=== PATIENT | female | born 1990 | race Caucasian/White ===

== ENCOUNTER → 2019-02-08 | Outpatient (CLI) | payer BC | LOC: FIMAGING 14:19 | PROVIDERS: ATTEND Midwife | DX: O20.9 Hemorrhage in early pregnancy, unspecified (principal); Z3A.12 12 weeks gestation of pregnancy ==

== ENCOUNTER → 2019-03-30 | Outpatient (CLI) | payer BC | LOC: FIMAGING 12:29 | PROVIDERS: ATTEND Midwife | DX: O09.92 Supervision of high risk pregnancy, unspecified, second trimester (principal); Z3A.20 20 weeks gestation of pregnancy ==

== ENCOUNTER → 2019-04-26 | Outpatient (CLI) | payer BC | LOC: FIMAGING 12:45 ==